=== PATIENT | female | born 1945 | race Caucasian/White ===

== ENCOUNTER 2017-03-13 10:27 | Emergency (ER) | payer MEDICARE, BC ==
[2017-03-13 10:35] VITALS: BP 176/86
[2017-03-13] MEDS ORDERED: DIPHTH,PERTUSS(ACELL),TET VAC 0.5 ML VIAL IM ONE ×2 (10:38→10:41)
--- NOTE | 2017-03-13 10:55 | ERNOTE ---
Upper Extremity HPI - General Time Seen by Provider: 03/13/17 10:29 Source: patient Exam Limitations: no limitations - Immun/Allergies/Home Medications Immunizations: IMMUNIZATION HX Immunizations Up to Date No History of Influenza Vaccine No Hx Pneumococcal Vaccination Yes Allergies/Adverse Reactions: Allergies Allergy/AdvReac Type Severity Reaction Status Date / Time No Known Allergies Allergy Verified 07/18/15 12:37 - History of Present Illness Narrative: Patient tripped last night and hit her left elbow sustaining a laceration, she denies any other injury, is able to move the elbow Date (Duration): 03/12/17 Time (Timing): 20:30 Occurred: yesterday Location of Incident: home Severity: mild Method of Injury: Reports: fell Reason for Fall: Reports: tripped Loss of Consciousness: Reports: no loss of consciousness Associated Symptoms: Denies: tingling, weakness, loss of power (rt arm) Other Injuries: Reports: none Review of Systems - Review of Systems Constitutional: Absent: recent illness, fever ENT: Absent: nose congestion Respiratory: Absent: shortness of breath Cardiology: Absent: chest pain Gastrointestinal/Abdominal: Absent: nausea Genitourinary: Present: no symptoms reported Musculoskeletal: Present: See HPI Neurological: Absent: weakness, numbness - Patient's Past Medical History Patient History - Medical: Arthritis, Other Patient History - Cardiac/Respiratory: No pertinent hx Patient History - Cancer: No Hx of Cancer Patient History - Surgical Procedures: Colonoscopy, Other Patient History - Other: None LMP (females 10-50): Menopausal - Family History Father Family History - Medical: Diabetes Type 2, Other Mother Family History - Medical: Glaucoma, Other - Social History Living Situations: home Abuse History: No History of abuse Psych History: No pertinent hx Smoking Status: Former smoker Alcohol Use: none Drug Use: none - Immunizations Immunizations Up to Date: No Hx Pneumococcal Vaccination: Yes History of Influenza Vaccine: No Physical Exam - Physical Exam General Appearance: Present: wd/wn, alert, no apparent distress Head Exam: Present: normal inspection Respiratory: Present: no respiratory distress, lungs clear Cardiovascular/Chest: Present: regular rate, rhythm Peripheral Pulses: N=norm/S=strong/W=weak/B=bound/A=absent: Radial (L): Normal Extremity Exam: Present: normal except - - flap laceration just distal to left elbow, non-tender, normal range of motion Neurological Exam: Present: alert, oriented, normal mood/affect, no motor/ sensory deficits Skin Exam: Present: normal color, warm/dry ED Progress - Vital Signs Patient's Vital Signs:: I have reviewed the patient's vital signs. Vital Signs: Vital Signs 03/13/17 10:28 Temperature 36.8 C Pulse Rate 86 Respiratory 17 Rate Blood Pressure 176/86 O2 Sat by Pulse 96 Oximetry - Progress/Reassessment Progress Note-Subjective: 03/13/17 10:35 discussed with patient that wound should be sutured within 6 hours since patient has flap with gaping will loosely suture to approximate Procedures Left Elbow Anesthesia: 1% Lidocaine, Local Length of Repair/Wound (cm): 2.5 Wound's Depth/Shape: into subcutaneous, flap Wound Explored: clean, no foreign body Wound Intervention: irrigated w/saline Distal NVT: neuro/vasc intact, no tendon injury Suture Size/Type: 3-0 Number of Sutures: 2 Layer Closure: Simple Wound Dressing: sterile dressing applied Complications: Pt komal procedure well Departure Clinical Impression: Laceration - Departure Disposition: Home self-care Condition: Good Instructions: Laceration Care, Adult, [id number] Additional Instructions: watch closely for signs of infection have the sutures removed in 12 days Referrals: Roula Bagley MD [Primary Care Provider] -
== END 2017-03-13 10:50 | disposition home or self-care (01) ==
LOC: ER 10:27
PROC: 0JQH0ZZ Repair Left Lower Arm Subcutaneous Tissue and Fascia, Open Approach (ICD-10-PCS; principal; 2017-03-13)
DX: S51.012A Laceration without foreign body of left elbow, initial encounter (principal); W01.10XA Fall on same level from slipping, tripping and stumbling with subsequent striking against unspecified object, initial encounter; Y92.009 Unspecified place in unspecified non-institutional (private) residence as the place of occurrence of the external cause; Z23 Encounter for immunization

== ENCOUNTER 2018-03-25 18:30 | Inpatient (IN) | payer BC, MEDICARE ==
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
[2018-03-25 19:05] LABS: Hematocrit 39.8 % (37.0-47.0); Hemoglobin 13.2 gm/dL (12.5-16.0); Mean Cell Volume 96.6 fl (78-100); Mean Corpuscular Hgb Conc 33.2 g/dl (32-36); Mean Platelet Volume 10.4 fl (8-12.5); Neutrophil # 2.7 K/mm3 (1.3-6.0); Neutrophil % 40.4 % (42-75.0); Platelet Count 174 K/mm3 (150-450); Red Blood Count 4.12 M/mm3 (4.2-5.4); Red Cell Distribution Width 12.1 % (11.5-14.0); White Blood Count 6.8 K/mm3 (4.0-10.5)
[2018-03-25 19:11] LABS: Albumin * 3.4 gm/dl (3.4-5.0); Anion Gap 11.5 mmol/L (6.8-13.8); BUN/Creatinine Ratio 19.2 (9.0-21.6); Bilirubin, Total 0.3 mg/dL (0.0-1.1); Ca. Corrected For Albumin 8.5 mg/dL (8.4-10.2); Calcium * 8.3 mg/dL (7.9-10.9); Carbon Dioxide 28.3 mmol/L (24-32.6); Potassium 3.8 mmol/L (3.4-4.6); Total Protein 6.6 gm/dL (6.2-8.2)
[2018-03-25 19:19] LABS: INR 1.06 INR (0.90-1.10); Partial Thrombolplastin Time 22.6 Seconds (24-32); Prothrombin Time (Patient) 10.6 Seconds (9.0-11.0)
[2018-03-25] MEDS ORDERED: MORPHINE SULFATE 4 MG/ML SYRG ONE ×2 (19:20→20:08)
[2018-03-25] MEDS ORDERED: MORPHINE SULFATE 4 MG/ML SYRG IV ONE (19:20)
[2018-03-25] MEDS ORDERED: ONDANSETRON HCL/PF 2 MG/ML VIAL IV ONE (19:20)
[2018-03-25] MEDS ORDERED: ONDANSETRON HCL/PF 2 MG/ML VIAL ONE (19:22)
[2018-03-25] MEDS ORDERED: MORPHINE SULFATE 8 MG/ML VIAL IV PRN ×2 (19:56→21:05)
[2018-03-25 20:15] LABS: Urine Bilirubin Negative (NEGATIVE); Urine Blood Negative /ul (NEGATIVE); Urine Ketone Negative (NEGATIVE); Urine Nitrite Negative (NEGATIVE); Urine Protein Negative (NEGATIVE); Urine Specific Gravity 1.015 SP.GR. (1.005-1.010); Urine Urobilinogen Normal (NORMAL)
[2018-03-25 20:26] LABS: Urine Appearance Clear (CLEAR); Urine Color Yellow
[2018-03-25 20:27] LABS: Urine Bacteria TRACE; Urine RBC 0-5 /hpf (0-5); Urine WBC 0-5 /hpf (0-5)
[2018-03-25] MEDS: NORMAL SALINE 1,000 ML IV PRN (20:48)
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
[2018-03-26] MEDS ORDERED: NORMAL SALINE 500 ML IV ONE (01:52)
[2018-03-26] MEDS ORDERED: ceFAZolin SODIUM 2 GM in DEXTROSE 5 % IN WATER 50 ML IV ONE ×2 (06:00)
[2018-03-26] MEDS: MORPHINE SULFATE 4 MG/ML SYRG IV PRN ×2 (07:14→11:18)
[2018-03-26] MEDS: NORMAL SALINE 1,000 ML IV PRN (08:49)
[2018-03-26] MEDS ORDERED: ceFAZolin SODIUM/DEXTROSE,ISO 2 GM/50 ML BAG IV ONE (10:03)
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
--- NOTE | 2018-03-26 11:05 | ANES ---
Anesthesia Pre Procedure Eval Vitals/Labs: Last Vital Signs Temp 36.8 C 03/26/18 10:00 Pulse 68 03/26/18 10:00 Resp 16 03/26/18 10:00 BP 116/53 03/26/18 10:00 Pulse Ox 94 03/26/18 10:00 HOME MEDICATIONS NK 03/25/18 [Last Taken Unknown] Allergies/Adverse Reactions: Allergies Allergy/AdvReac Type Severity Reaction Status Date / Time No Known Allergies Allergy Verified 03/25/18 23:41 - Planned Procedure Planned Procedure: Left Hip Fracture Medication List Reviewed:: Yes Allergies Verified: Yes Medical History (Last Reviewed 03/26/18 @ 11:02 by José Miguel Pereira CRNA) Degeneration of lumbar intervertebral disc (Chronic) Onset Date: Unknown Degeneration of cervical intervertebral disc (Chronic) Onset Date: Unknown Herpes simplex (Chronic) Onset Date: Unknown of lip History of cystocele Onset Date: Unknown Surgical History (Last Reviewed 03/26/18 @ 11:02 by José Miguel Pereira CRNA) History of arthroscopy of right knee Onset Date: ~2011 Dr Ruiz History of bladder suspension procedure Onset Date: ~2003 History of cataract surgery Onset Date: Unknown bilateral History of colonoscopy Onset Date: 08/03/172005 Jelly. 2016 [place] poor prep, extensive diverticulosis recheck 1 yr. 2018 [place] sigmoid diverticulosis recheck in 10 yrs History of incision and drainage Onset Date: ~2008 History of left breast biopsy Onset Date: ~1998 Dr Odonnell History of nasal surgery Onset Date: ~[address] Reaves Family History (Last Reviewed 03/26/18 @ 11:02 by José Miguel Pereira CRNA) Father Diabetes Mother Parkinson disease - Family Anesthesia History Family History:: no untoward family reactions to anesthesia, no familial bleeding tendencies, no family history of clotting disorders, no family history of premature - Airway/Neck/Teeth Denture Type: Full- Upper & Lower Neck Exam: non-tender, full range of motion Mallampatti Score: 2 Thyromental (T-M) distance: > 6 cm Mandibulo Hyoid distance: > 3 cm - Respiratory Respiratory: chest non-tender, lungs clear, normal breath sounds Smoking Status: Former smoker Sleep Apnea currently treated: No Sleep Apnea by current assessment: No - Cardiovascular Patient History - Cardiac/Respiratory: Arrhythmias - by auscultaition Tolerates Activity: Fair Heart Sounds: S1 & S2, Irregular - occasional early beat - Anesthesia Assessment and Plan ASA Class: PS, II Anesthesia Type Plan: Spinal Planned difficult intubation/equipment available: No
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
[2018-03-26] MEDS: RINGER'S SOLUTION,LACTATED 1,000 ML IV PRN ×2 (15:40→18:35)
[2018-03-26] MEDS ORDERED: MAG HYDROX/ALUMINUM HYD/SIMETH 30 ML UDC PO PRN (16:18)
[2018-03-26] MEDS ORDERED: MAGNESIUM HYDROXIDE 30 ML UDC PO PRN (16:18)
[2018-03-26] MEDS ORDERED: ACETAMINOPHEN 500 MG TABLET PO PRN (16:18)
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
--- NOTE | 2018-03-26 16:42 | ANES ---
Post Anesthesia Discharge - Transfer of Care Transfer of Care handoff given to nurse: Yes - Discharge from PACU Discharge from PACU when meets criteria: Yes - Discharge to ASU Discharge to ASU-no complications/pt stable: Yes
--- NOTE | 2018-03-26 16:47 | ANES ---
Post Anesthesia Assessment - Vital Signs Vitals: Last Vital Signs Temp 36.4 C 03/26/18 16:35 Pulse 78 03/26/18 16:40 Resp 11 L 03/26/18 16:40 BP 100/54 03/26/18 16:40 Pulse Ox 100 03/26/18 16:40 Airway Patency: Normal - Mental Status Level Of Consciousness: Awake - Pain Level Pain Score: 0 - N/V Assessment Nausea/Vomiting Presence: None Dehydration:: No
[2018-03-26] MEDS: WARFARIN SODIUM 5 MG TABLET PO SCH (17:22)
[2018-03-26] MEDS: KETOROLAC TROMETHAMINE 15 MG/ML VIAL IV SCH ×2 (17:24→23:54)
[2018-03-26] MEDS: ceFAZolin SODIUM 1 GM in DEXTROSE 5 % IN WATER 100 ML IV SCH ×4 (18:36→23:54)
[2018-03-26] MEDS: HYDROcodone/ACETAMINOPHEN 1 EACH TABLET PO PRN (19:30)
[2018-03-26] MEDS: SENNOSIDES/DOCUSATE SODIUM 1 TAB TABLET PO SCH (20:55)
[2018-03-27] MEDS: HYDROcodone/ACETAMINOPHEN 1 EACH TABLET PO PRN ×4 (03:46→19:50)
[2018-03-27] MEDS: KETOROLAC TROMETHAMINE 15 MG/ML VIAL IV SCH ×4 (05:57→23:24)
[2018-03-27 06:33] LABS: Anion Gap 8.5 mmol/L (6.8-13.8); BUN/Creatinine Ratio 18.4 (9.0-21.6); Calcium * 7.2 mg/dL (7.9-10.9); Carbon Dioxide 28.3 mmol/L (24-32.6); Estimated Creat Clear 69.2; Potassium 3.8 mmol/L (3.4-4.6)
[2018-03-27] MEDS: ceFAZolin SODIUM 1 GM in DEXTROSE 5 % IN WATER 100 ML IV SCH ×2 (06:44)
[2018-03-27 06:52] LABS: Mean Cell Volume 97.5 fl (78-100); Mean Corpuscular Hemoglobin 32.2 pg (27-31); Mean Platelet Volume 10.1 fl (8-12.5); Platelet Count 79 K/mm3 (150-450); Red Blood Count 2.36 M/mm3 (4.2-5.4); Red Cell Distribution Width 12.5 % (11.5-14.0); White Blood Count 6.3 K/mm3 (4.0-10.5)
[2018-03-27 06:57] LABS: Hemoglobin 7.6 gm/dL (12.5-16.0)
--- NOTE | 2018-03-27 09:46 | PN ---
Subjective - Date and Time Seen Date: 03/27/18 Time: 09:45 Subjective Narrative: Subjective: Reports mild pain in the left leg. Was able to get to the chair with therapy. Voiding without any complications. Tolerating by mouth intake. Denies any nausea or vomiting. Denies calf pain. Physical exam: Alert and oriented to person, place and time Left lower Extremity: Palpable dorsalis pedis pulse. Sensation grossly intact to light touch. Dressings clean and dry. Able to flex and extend ankle and toes. No excessive drainage. Calf and thigh are soft and nontender. Assessment: Postop day 1 status post left subtrochanteric femur fracture fixation. Plan: She is toe-touch weightbearing. She will need 6 weeks of anticoagulation for DVT prophylaxis. Range of motion as tolerated to left hip. Continue physical therapy. She hasn't noted postoperative anemia and from orthopedic standpoint is okay to transfuse - I would recommend 2 units. Continue pain control. Keep wounds dry. Objective - Vitals Vitals: Last Vital Signs Temp 37.2 C 03/27/18 07:08 Pulse 71 03/27/18 07:08 Resp 12 03/27/18 07:08 BP 111/68 03/27/18 07:08 Pulse Ox 95 03/27/18 07:08 - Abnormal Lab Findings Abnormal Lab Findings: Abnormal Lab Results 03/27/18 03/27/18 03/27/18 Range/Units 06:00 06:25 06:40 RBC 2.36 L (4.2-5.4) M/mm3 Hgb 7.6 L* D (12.5-16.0) gm/dL Hct 23.0 L* D (37.0-47.0) % MCH 32.2 H (27-31) pg Plt Count 79 L (150-450) K/mm3 Calcium 7.2 L (7.9-10.9) mg/dL Crossmatch See Detail Cauti Physician Documentation - Urinary Catheter Management Urethral (Stout) Urethral Indwelling: No Date of Insertion: 03/25/18 Time of Insertion: 20:00 Assessment/Plan - Problems/Diagnosis (1) Subtrochanteric fracture of left femur Problem: Acute Qualifiers: Encounter type: subsequent encounter Fracture type: closed Fracture alignment: displaced Fracture healing: with routine healing Qualified Code(s): S72.22XD - Displaced subtrochanteric fracture of left femur, subsequent encounter for closed fracture with routine healing
[2018-03-27 11:59] LABS: Prothrombin Time (Patient) 12.3 Seconds (9.0-11.0)
[2018-03-27 12:22] LABS: INR 1.23 INR (0.90-1.10)
[2018-03-27] MEDS: ENOXAPARIN SODIUM 40 MG/0.4 ML SYRG SC SCH (15:33)
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
[2018-03-27] MEDS: WARFARIN SODIUM 5 MG TABLET PO SCH (17:18)
[2018-03-27] MEDS: SENNOSIDES/DOCUSATE SODIUM 1 TAB TABLET PO SCH (20:41)
[2018-03-28] MEDS: HYDROcodone/ACETAMINOPHEN 1 EACH TABLET PO PRN ×4 (02:57→19:05)
[2018-03-28 05:27] LABS: Hematocrit 26.9 % (37.0-47.0); Hemoglobin 9.2 gm/dL (12.5-16.0); Mean Cell Volume 93.1 fl (78-100); Mean Corpuscular Hemoglobin 31.8 pg (27-31); Mean Corpuscular Hgb Conc 34.2 g/dl (32-36); Mean Platelet Volume 11.1 fl (8-12.5); Neutrophil # 4.4 K/mm3 (1.3-6.0); Platelet Count 78 K/mm3 (150-450); Red Blood Count 2.89 M/mm3 (4.2-5.4); Red Cell Distribution Width 13.3 % (11.5-14.0); White Blood Count 6.5 K/mm3 (4.0-10.5)
[2018-03-28] MEDS: KETOROLAC TROMETHAMINE 15 MG/ML VIAL IV SCH ×2 (05:30→11:56)
[2018-03-28 05:39] LABS: INR 1.3 INR (0.90-1.10)
[2018-03-28] MEDS: MORPHINE SULFATE 4 MG/ML SYRG IV PRN (10:08)
[2018-03-28] MEDS ORDERED: ONDANSETRON HCL/PF 2 MG/ML VIAL IV PRN (13:49)
[2018-03-28] MEDS: ENOXAPARIN SODIUM 40 MG/0.4 ML SYRG SC SCH (15:32)
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
[2018-03-28] MEDS: WARFARIN SODIUM 5 MG TABLET PO SCH (17:09)
[2018-03-28] MEDS: SENNOSIDES/DOCUSATE SODIUM 1 TAB TABLET PO SCH (20:56)
[2018-03-29] MEDS: HYDROcodone/ACETAMINOPHEN 1 EACH TABLET PO PRN ×3 (04:29→12:58)
[2018-03-29 06:08] LABS: Prothrombin Time (Patient) 16.6 Seconds (9.0-11.0)
[2018-03-29 06:09] LABS: INR 1.65 INR (0.90-1.10)
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
--- NOTE | 2018-03-29 12:45 | PN ---
Subjective - Date and Time Seen Date: 03/29/18 Time: 12:44 Subjective Narrative: Subjective: Reports minimal pain in the left leg. Was able to walk to the door with therapy. Voiding without any complications. Tolerating by mouth intake. Physical exam: Alert and oriented to person, place and time Left lower Extremity: Palpable dorsalis pedis pulse. Sensation grossly intact to light touch. Dressings clean and dry. Able to flex and extend ankle and toes. No excessive drainage. Calf and thigh are soft and nontender. Assessment: Postop day 3 status post left subtrochanteric femur fracture fixation. Plan: She is toe-touch weightbearing. She will need 6 weeks of anticoagulation for DVT prophylaxis. Range of motion as tolerated to left hip. Continue physical therapy. She will follow-up in 2 weeks. Change dressings were 2-3 days with dry gauze and tape. Continue pain control. Keep wounds dry. Objective - Vitals Vitals: Last Vital Signs Temp 36.8 C 03/29/18 10:40 Pulse 65 03/29/18 10:40 Resp 16 03/29/18 10:40 BP 121/60 03/29/18 10:40 Pulse Ox 95 03/29/18 10:40 - Abnormal Lab Findings Abnormal Lab Findings: Abnormal Lab Results 03/29/18 Range/Units 05:40 PT 16.6 H (9.0-11.0) Seconds INR (Anticoag Therapy) 1.65 H (0.90-1.10) INR Cauti Physician Documentation - Urinary Catheter Management Urethral (Stout) Urethral Indwelling: No Date of Insertion: 03/25/18 Time of Insertion: 20:00 Assessment/Plan - Problems/Diagnosis (1) Subtrochanteric fracture of left femur Problem: Acute Qualifiers: Encounter type: subsequent encounter Fracture type: closed Fracture alignment: displaced Fracture healing: with routine healing Qualified Code(s): S72.22XD - Displaced subtrochanteric fracture of left femur, subsequent encounter for closed fracture with routine healing
[2018-03-29 13:01] VITALS: BP 125/66
== END 2018-03-29 13:15 | DRG 956 ==
LOC: ER 18:30 → MS 19:51
PROVIDERS: ADMIT Family Medicine; ATTEND Family Medicine
DX: S72.22XA Displaced subtrochanteric fracture of left femur, initial encounter for closed fracture; Y92.9 Unspecified place or not applicable; S32.509A Unspecified fracture of unspecified pubis, initial encounter for closed fracture; Z87.891 Personal history of nicotine dependence; D62 Acute posthemorrhagic anemia; R40.2412 Glasgow coma scale score 13-15, at arrival to emergency department; V89.2XXA Person injured in unspecified motor-vehicle accident, traffic, initial encounter; M47.9 Spondylosis, unspecified
CPT/HCPCS: 36415; 51702; 70450; 71010; 71045; 72110; 72190; 73502; 76000; 80048; 80053; 81001; 85025; 85027; 85610; 85730; 86850; 86900; 87086; 93005; 96374; 96375; 96376; 97110; 97116; 97161; 97165; 99285; J2405; P9016